=== PATIENT | female | born 1990 | race Two or more races ===

== ENCOUNTER → 2018-11-26 | Outpatient (CLI) | payer OTHER | END | disposition home or self-care (01) | LOC: MAMO-SONO 11-25 13:15 → SONOGRAMA 13:13 | DX: R10.2 Pelvic and perineal pain (principal) ==

== ENCOUNTER 2021-12-20 12:21 | Outpatient (CLI) | payer OTHER | END 2021-12-20 12:22 | disposition home or self-care (01) | LOC: SONOGRAMA 12:21 | PROVIDERS: ATTEND Family Medicine | DX: N63.11 Unspecified lump in the right breast, upper outer quadrant (principal); N63.12 Unspecified lump in the right breast, upper inner quadrant ==

== ENCOUNTER 2025-05-24 06:45 | Day surgery (SDC) | payer OTHER ==
[~2025-05-24 06:45] MED LIST: MOTRIN IB200 M1
[2025-05-24] MEDS ORDERED: POVIDONE-IODINE 118 ML BOTT TOP ONE (15:15)
== END 2025-05-24 17:45 | disposition home or self-care (01) ==
LOC: CIR.AMB 06:45
PROVIDERS: ATTEND Obstetrics & Gynecology
DX: N84.0 Polyp of corpus uteri (principal); N88.2 Stricture and stenosis of cervix uteri